=== PATIENT | female | born 1960 | race Caucasian/White ===

== ENCOUNTER 2017-07-18 10:18 | Outpatient (CLI) | payer OTHER ==
[2017-07-18 17:51] VITALS: BMI 30.9
--- NOTE | 2017-07-19 07:58 | EKG ---
Test Reason : Blood Pressure : / mmHG Vent. Rate : 074 BPM Atrial Rate : 074 BPM P-R Int : 154 ms QRS Dur : 080 ms QT Int : 382 ms P-R-T Axes : 051 078 062 degrees QTc Int : 424 ms Normal sinus rhythm Normal ECG No previous ECGs available Confirmed by ESTELA OLIVIA, DR. De Guzman ([id number]) on 07/19/2017 7:57:46 AM Referred By: MADYSON Confirmed By:DR. Gege PALMER MD
== END 2017-07-18 10:19 | disposition home or self-care (01) ==
LOC: LABBT 10:18
PROVIDERS: ATTEND Specialist
DX: Z01.818 Encounter for other preprocedural examination (principal); D05.12 Intraductal carcinoma in situ of left breast
CPT/HCPCS: 36415; 80048; 85025; 93005; 93010

== ENCOUNTER 2017-08-10 06:52 | Day surgery (SDC) | payer OTHER ==
[2017-07-18 13:07] LABS: #Basophils 0.1 thou/uL (0.0-0.2); #Eosinphils 0.3 thou/uL (0.0-0.7); #Lymphocytes 2.2 thou/uL (1.20-3.40); #Monocytes 0.6 thou/uL (0.11-0.59); #Neutrophils 7.6 thou/uL (1.40-6.50); %Basophils 0.8 % (0.0-1.0); %Eosinophils 2.7 % (0.0-10.0); %Lymphocytes 20.3 % (21.0-51.0); %Monocytes 5.6 % (0.0-10.0); Hematocrit 43.6 % (36.0-47.0); Mean Platelet Volume 7.4 fL (7.4-10.4); White Blood Cell (WBC) Count 10.8 thou/uL (4.8-10.8)
[2017-07-18 13:34] LABS: Anion Gap 13 mmol/L (10-20); BUN (Urea Nitrogen) 15 mg/dL (9.8-20.1); Calc. Creatinine Clearance 0 mL/min (70-130); Calcium 9.5 mg/dL (7.8-10.44); Carbon Dioxide 27 mmol/L (22-29); Chloride 102 mmol/L (98-107); Estimated GFR-MDRD 80
[2017-08-10] MEDS ORDERED: CEFAZOLIN/Water 2 GM/20 ML SYRINGE ONE (09:26)
[2017-08-10] MEDS ORDERED: Ketorolac Tromethamine 30 MG/ML VIAL ONE (09:26)
--- NOTE | 2017-08-10 10:23 | NM ---
LEFT BREAST LYMPHOSCINTIGRAPHY: INDICATION: Left breast DCIS. RADIOPHARMACEUTICAL: 0.44 mCi Technetium 99m filtered sulfur colloid subcu. TECHNIQUE: The left breast nipple-areolar complex was cleansed. Four separate aliquots for a total of 0.44 mCi Technetium 99m filtered SC were administered into the subcutaneous tissues surrounding the left nippl e. The left nipple region was then massaged. The patient underwent planar imaging until there was i dentification of the 1st draining anterior left axillary lymph node was identified. The patient was then transferred to the preoperative holding suite to undergo her left breast lumpectomy and left axi llary lymph node dissection. IMPRESSION: Successful left breast lymphoscintigraphy. POS: [facility]
--- NOTE | 2017-08-10 11:46 | MMO ---
LEFT BREAST NEEDLE LOCALIZATION: Date: 08/10/17 INDICATION: History of DCIS of the left breast. TECHNIQUE: Informed consent was obtained. The patient was positioned in the CCU projection within the left breas t for the mammographically guided needle localization. [employer] image was obtained. The breast was then sterilely prepped. Buffered 1% lidocaine was administered to the overlying subcutaneous tissues. Unde r mammographic guidance, a 7.5 cm [facility] needle was guided down through the level of the calcification s to level of the biopsy clip which is seen more distally and central within the left breast. The rell cifications are seen within the left breast 12 o'clock position. The biopsy clip was felt to be deepe r than the calcifications, likely related to displacement of the clip after the stereotactic breast b iopsy from the left breast hematoma. The needle tip was positioned 2.7 cm from the level of the calci fications. The tip of the needle was positioned adjacent to the biopsy clip itself. The wire was posi tioned within the left breast. The images were annotated for guidance to Dr. Pitts. The patient jose erated the procedure without difficulty. IMPRESSION: BIRADS 6: Known Biopsy Proven Malignancy Successful needle localizations of the calcifications within the left breast and associated left tristan st biopsy. POS: [facility]
[2017-08-10] MEDS ORDERED: Isosulfan Blue 50 MG/5 ML VIAL ONE (12:40)
[2017-08-10] MEDS ORDERED: Bupivacaine/Epinephrine 0.25% 30 ML VIAL ONE ×2 (12:40→14:03)
[2017-08-10] MEDS ORDERED: Fentanyl 100 MCG/2 ML VIAL ONE (12:45)
[2017-08-10] MEDS ORDERED: Midazolam HCl 2 mg/2 ml Vial ONE (12:45)
[2017-08-10] MEDS ORDERED: Ondansetron HCl/PF 4 MG/2 ML Vial ONE (16:15)
[2017-08-10] MEDS ORDERED: Dexamethasone 20 MG/5 ML VIAL ONE (16:15)
[2017-08-10] MEDS ORDERED: Propofol 200 MG/20 ML VIAL ONE (16:15)
--- NOTE | 2017-08-10 17:04 | OP ---
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 OPERATION PERFORMED: Left breast needle-localized lumpectomy, sentinel lymph node mapping with left axillary sentinel lymph node biopsy. SURGEON: Ilir Pitts M.D. ANESTHESIA: General endotracheal. INDICATIONS: The patient is a 57-year-old white female. She was recently found to have calcificatio ns on mammography, and stereotactic biopsy was performed with calcifications revealing a high grade d uctal carcinoma in situ. Needle localized lumpectomy was recommended by myself. She was taken to [facility] operating room at this time for this purpose. One preoperative needle localization was performed, and it was found that the residual calcifications were a few centimeters away from the clip. It was decided to endeavor to remove both the calcifications and the clip within the specimen. Lymphoscinti graphy did reveal axillary sentinel lymph nodes. DESCRIPTION OF OPERATION: Informed consent was obtained. The patient was taken to the operating aislinn m, where general endotracheal anesthesia was obtained with the patient in supine position. Left tristan st and axilla were prepped with ChloraPrep and draped in sterile fashion. The needle exited the supe rior aspect of the breast and was angled inferiorly and deep within the breast. A 3 mL of Lymphazurin was infiltrated in the subdermal periareolar tissue, and the breast was massaged for five minutes. Breast and axilla were then prepped with ChloraPrep and draped in sterile fashion. Local anesthetic was infiltrated, and a transverse incision was created in the inferior axilla. Dissection was gavino d through skin and subcutaneous tissue. The superficial axillary fascia was incised. The Neoprobe w as utilized to identify areas of maximum radio intensity. I was able to identify 2 significant enlar ged and blue-stained lymph nodes that were both highly radioactive. Each of these was grasped and re moved by dividing all investing tissue between clamps and 3-0 silk ties. The specimen was submitted to pathology for touch prep, which proved to be negative. The axilla was meticulously hemostatic. I t was irrigated and closed in layers with 3-0 and 4-0 Monocryl. Additional local anesthetic was infi ltrated during closure. Dermabond was placed externally. Attention was turned to the breast. The needle was found to be fairly deeply placed within the breas t. It was about 6 cm away from the needle tip at the skin edge. I decided to create a counterincisi on about 2-3 cm inferior to the needle insertion site. This was created in a transverse fashion. Dissection was carried through skin and subcutaneous tissue. Dissection was carried about a centimet er into the breast, and flap was raised superiorly to identify the needle within the breast tissue. At this point, the needle was removed, and the guidewire that was still within the tissue was replace d to the open incision. The tissue into which the guidewire entered was grasped with a couple of All is clamps and widely dissected so as to remove a lump of tissue along the guidewire extending beyond the tip of the guidewire. The specimen was removed intact. It was tagged for orientation and submit amrit for x-ray, which did reveal removal of calcifications and the clip. It was tagged for orientatio n and submitted to pathology. Meticulous hemostasis was obtained within the wound using electrocaute ry. It was irrigated and aspirated. The wound was closed in layers with 3-0 and 4-0 Monocryl suture . Dermabond was placed externally. There were no complications. The patient tolerated the procedur e well and was taken to recovery room in stable condition.
--- NOTE | 2017-08-14 12:00 | MMO ---
MAMMO SURGICAL SPECIMEN: INDICATION: Left breast lumpectomy. FINDINGS: The surgical specimen contains suspicious calcification, wire, and biopsy clip. Findings were called to Dr. Pitts in the operating room at 2:50 p.m. on 08/10/17. IMPRESSION: BI-RADS category 6 - known biopsy-proven malignancy. BIRADS 6: Known Biopsy Proven Malignancy POS: [facility]
== END 2017-08-10 17:10 | disposition home or self-care (01) ==
LOC: SDC 06:52
PROVIDERS: ATTEND Specialist
PROC: 0HBU0ZZ Excision of Left Breast, Open Approach (ICD-10-PCS; principal; 2017-08-10)
PROC: 07B63ZX Excision of Left Axillary Lymphatic, Percutaneous Approach, Diagnostic (ICD-10-PCS; principal; 2017-08-10)
DX: D05.12 Intraductal carcinoma in situ of left breast (principal); I10 Essential (primary) hypertension; E11.9 Type 2 diabetes mellitus without complications; Z88.1 Allergy status to other antibiotic agents; Z88.8 Allergy status to other drugs, medicaments and biological substances; Z79.84 Long term (current) use of oral hypoglycemic drugs; Z79.899 Other long term (current) drug therapy; Z90.710 Acquired absence of both cervix and uterus; Z98.890 Other specified postprocedural states; Z87.19 Personal history of other diseases of the digestive system
CPT/HCPCS: 19281; 36415; 76098; 78195; 80048; 85025; 88307; 88333; 88334; 88341; 88342; A9541; J0131; J1100; J1885; J2250; J2405; J2704; J3010; Q9968

== ENCOUNTER 2018-06-04 13:49 | Outpatient (CLI) | payer OTHER | END 2018-06-04 13:50 | disposition home or self-care (01) | LOC: BICMAMMO 13:49 | PROVIDERS: ATTEND Internal Medicine Hematology & Oncology | DX: Z08 Encounter for follow-up examination after completed treatment for malignant neoplasm (principal); R92.2 Inconclusive mammogram; Z85.3 Personal history of malignant neoplasm of breast; Z86.000 Personal history of in-situ neoplasm of breast; Z80.3 Family history of malignant neoplasm of breast; Z98.890 Other specified postprocedural states | CPT/HCPCS: 77066; G0279 ==

== ENCOUNTER 2019-07-04 14:02 | Outpatient (CLI) | payer OTHER ==
--- NOTE | 2019-07-04 14:50 | MMO ---
Bilateral MAMMO Bilat Diag [facility]. CLINICAL HISTORY: Patient is 59 years old and is seen for diagnostic exam. The patient has the following family history of breast cancer: maternal grandmother, malignant (generic). The patient has a history of lumpectomy procedure revealed intraductal carcinoma, high grade in the left breast in August, and Stereotactic core biopsy procedure revealed intraductal carcinoma, high grade in the left breast in May,. The patient has a history of left Stereotatic Biopsy in 2017 - malignant. VIEWS: The views performed were: bilateral craniocaudal with tomosynthesis; bilateral mediolateral oblique with tomosynthesis; and bilateral mediolateral with tomosynthesis. FILMS COMPARED: The present examination has been compared to prior imaging studies performed at [facility] on 10/01/2015, 05/03/2017, 05/08/2017 and 06/04/2018. This study has been interpreted with the assistance of computer-aided detection. MAMMOGRAM FINDINGS: There are scattered fibroglandular densities. There are stable post-operative changes in the left breast. There are no suspicious masses, suspicious calcifications, or new areas of architectural distortion. IMPRESSION: THERE IS NO MAMMOGRAPHIC EVIDENCE OF MALIGNANCY. A ROUTINE FOLLOW-UP MAMMOGRAM IN 1 YEAR IS RECOMMENDED. THE RESULTS OF THIS EXAM WERE SENT TO THE PATIENT. ACR BI-RADS Category 2 - Benign finding MAMMOGRAPHY NOTE: 1. A negative mammogram report should not delay a biopsy if a dominant of clinically suspicious mass is present. 2. Approximately 10% to 15% of breast cancers are not detected by mammography. 3. Adenosis and dense breasts may obscure an underlying neoplasm. Reported by: LIZETH RIVERA MD Electonically Signed: [id number]
== END 2019-07-04 14:03 | disposition home or self-care (01) ==
LOC: BICMAMMO 14:02
PROVIDERS: ATTEND Internal Medicine Hematology & Oncology
DX: C50.412 Malignant neoplasm of upper-outer quadrant of left female breast (principal)
CPT/HCPCS: 77066; G0279

== ENCOUNTER 2020-07-09 13:51 | Outpatient (CLI) | payer BC ==
--- NOTE | 2020-07-09 14:29 | MMO ---
Bilateral MAMMO Bilat Diag [facility]. CLINICAL HISTORY: Patient is 60 years old and is seen for diagnostic exam. The patient has the following family history of breast cancer: maternal grandmother, malignant (generic). The patient has a history of lumpectomy procedure revealed intraductal carcinoma, high grade in the left breast in August, and Stereotactic core biopsy procedure revealed intraductal carcinoma, high grade in the left breast in May,. The patient has a history of left Stereotatic Biopsy in 2017 - malignant. VIEWS: The views performed were: bilateral craniocaudal with tomosynthesis; bilateral mediolateral oblique with tomosynthesis; and bilateral mediolateral with tomosynthesis. FILMS COMPARED: The present examination has been compared to prior imaging studies performed at [facility] on 05/03/2017, 05/08/2017, 06/04/2018 and 07/04/2019. This study has been interpreted with the assistance of computer-aided detection. MAMMOGRAM FINDINGS: There are scattered fibroglandular densities. Finding 1: There are stable post operative changes seen in the left breast. Finding 2: There are stable benign appearing calcifications seen in both breasts. There are no suspicious masses, suspicious calcifications, or new areas of architectural distortion. IMPRESSION: THERE IS NO MAMMOGRAPHIC EVIDENCE OF MALIGNANCY. A ROUTINE FOLLOW-UP MAMMOGRAM IN 1 YEAR IS RECOMMENDED. THE RESULTS OF THIS EXAM WERE SENT TO THE PATIENT. ACR BI-RADS Category 2 - Benign finding MAMMOGRAPHY NOTE: 1. A negative mammogram report should not delay a biopsy if a dominant of clinically suspicious mass is present. 2. Approximately 10% to 15% of breast cancers are not detected by mammography. 3. Adenosis and dense breasts may obscure an underlying neoplasm. Reported by: JULIO DE LOS SANTOS MD Electonically Signed: [id number]
== END 2020-07-09 13:52 | disposition home or self-care (01) ==
LOC: BICMAMMO 13:51
PROVIDERS: ATTEND Internal Medicine Hematology & Oncology
DX: Z08 Encounter for follow-up examination after completed treatment for malignant neoplasm (principal); Z85.3 Personal history of malignant neoplasm of breast
CPT/HCPCS: 77066; G0279

== ENCOUNTER 2021-07-18 13:57 | Outpatient (CLI) | payer BC | END 2021-07-18 13:58 | disposition home or self-care (01) | LOC: BICMAMMO 13:57 | PROVIDERS: ATTEND Internal Medicine Hematology & Oncology | DX: Z08 Encounter for follow-up examination after completed treatment for malignant neoplasm (principal); Z85.3 Personal history of malignant neoplasm of breast | CPT/HCPCS: 77066; G0279 ==

== ENCOUNTER 2022-07-31 13:05 | Outpatient (CLI) | payer BC, OTHER | END 2022-07-31 13:06 | disposition home or self-care (01) | LOC: BICMAMMO 13:05 | PROVIDERS: ATTEND Internal Medicine Hematology & Oncology | DX: Z08 Encounter for follow-up examination after completed treatment for malignant neoplasm (principal); Z85.3 Personal history of malignant neoplasm of breast | CPT/HCPCS: 77066; G0279 ==

== ENCOUNTER 2022-08-30 12:38 | Outpatient (CLI) | payer BC | END 2022-08-30 12:39 | disposition home or self-care (01) | LOC: TBSIIMAG 12:38 | PROVIDERS: ATTEND Family Medicine | DX: M47.27 Other spondylosis with radiculopathy, lumbosacral region (principal); M48.08 Spinal stenosis, sacral and sacrococcygeal region; M51.16 Intervertebral disc disorders with radiculopathy, lumbar region; M47.26 Other spondylosis with radiculopathy, lumbar region; M48.061 Spinal stenosis, lumbar region without neurogenic claudication | CPT/HCPCS: 72148 ==

== ENCOUNTER 2022-09-14 13:37 | Outpatient (CLI) | payer BC | END 2022-09-14 13:38 | disposition home or self-care (01) | LOC: TBSIIMAG 13:37 | PROVIDERS: ATTEND Physician Assistant Surgical | DX: M47.26 Other spondylosis with radiculopathy, lumbar region (principal) | CPT/HCPCS: 72120 ==

== ENCOUNTER 2022-11-18 23:03 | Emergency (ER) | payer BC, OTHER ==
[2022-11-19 01:06] LABS: #Basophils 0.1 thou/uL (0.0-0.2); #Eosinphils 0.1 thou/uL (0.0-0.7); #Monocytes 0.8 thou/uL (0.11-0.59); #Neutrophils 4.6 thou/uL (1.40-6.50); %Basophils 0.7 % (0.0-1.0); %Eosinophils 1.3 % (0.0-10.0); %Lymphocytes 26.1 % (21.0-51.0); %Monocytes 10.2 % (0.0-10.0); %Neutrophils 61.6 % (42.0-75.0); Hemoglobin 12.1 g/dL (12.0-16.0); Mean Corpuscular Hemoglobin 30.4 pg (27.0-31.0); Mean Corpuscular Volume 86.8 fl (78.0-98.0); Platelet Count 260 10x3/uL (130-400); RBC Distribution Width 11.9 % (11.5-14.5); White Blood Cell (WBC) Count 7.5 10x3/uL (4.8-10.8)
[2022-11-19 01:26] LABS: ALT (SGPT) 19 U/L (8-55); AST (SGOT) 20 U/L (5-34); Albumin 3.8 g/dL (3.4-4.8); Alkaline Phosphatase 70 U/L (40-110); Anion Gap 14 mmol/L (10-20); BUN (Urea Nitrogen) 14 mg/dL (9.8-20.1); Bilirubin, Total 0.7 mg/dL (0.2-1.2); CK (CPK) 92 U/L (29-168); Calc. Creatinine Clearance 0 mL/min (70-130); Calcium 9.1 mg/dL (7.8-10.44); Carbon Dioxide 29 mmol/L (23-31); Chloride 95 mmol/L (98-107); Estimated GFR 57; Globulin 3.1 g/dL (2.4-3.5); Glucose 92 mg/dL (80-115); Potassium 2.8 mmol/L (3.5-5.1); Protein, Total 6.9 g/dL (5.8-8.1); Sodium 135 mmol/L (136-145)
[2022-11-19 02:01] LABS: Bilirubin Negative (Negative); Blood, Urine Negative (Negative); Clarity Clear (Clear); Glucose, Urine (Dipstick) Normal (Negative); Ketone, Urine Negative (Negative); Leukocyte Negative Leu/uL (Negative); Nitrite Negative (Negative); Protein, Urine (Dipstick) Negative (Neg-Trace); Specific Gravity, Urine 1.006 (1.002-1.036); Urobilinogen Normal mg/dL (Less than 2)
[2022-11-19] MEDS ORDERED: Potassium Chloride 20 MEQ TAB ONE (02:53)
== END 2022-11-19 02:57 | disposition home or self-care (01) ==
LOC: ERS 23:03
DX: E87.6 Hypokalemia (principal); E86.0 Dehydration; E11.9 Type 2 diabetes mellitus without complications; I10 Essential (primary) hypertension
CPT/HCPCS: 36415; 80053; 81003; 82550; 85025; 99283

== ENCOUNTER 2023-04-03 19:35 | Observation (INO) | payer BC ==
[~2023-04-03 19:35] MED LIST: Iopamidol-370 76% 500 ML MDV (1 ML CHARGE) ONE
[2023-04-03 20:24] LABS: #Basophils 0.1 thou/uL (0.0-0.2); #Eosinphils 0.4 thou/uL (0.0-0.7); #Monocytes 0.6 thou/uL (0.11-0.59); #Neutrophils 7.8 thou/uL (1.40-6.50); %Basophils 0.8 % (0.0-1.0); %Eosinophils 3.8 % (0.0-10.0); %Lymphocytes 21.7 % (21.0-51.0); %Monocytes 5.6 % (0.0-10.0); %Neutrophils 67.8 % (42.0-75.0); Hematocrit 38.4 % (36.0-47.0); Hemoglobin 13.1 g/dL (12.0-16.0); Mean Corpuscular HGB CONC 34.1 g/dL (32.0-36.0); Mean Corpuscular Hemoglobin 29.4 pg (27.0-31.0); Mean Corpuscular Volume 86.1 fl (78.0-98.0); Mean Platelet Volume 10.3 fL (7.4-10.4); Platelet Count 409 10x3/uL (130-400); RBC Distribution Width 13.4 % (11.5-14.5); Red Blood Cell (RBC) Count 4.46 mill/uL (4.20-5.40); White Blood Cell (WBC) Count 11.5 10x3/uL (4.8-10.8)
[2023-04-03 20:57] LABS: ALT (SGPT) 13 U/L (8-55); AST (SGOT) 13 U/L (5-34); Albumin 4.4 g/dL (3.4-4.8); Alkaline Phosphatase 103 U/L (40-110); Anion Gap 14 mmol/L (10-20); BUN (Urea Nitrogen) 17 mg/dL (9.8-20.1); Bilirubin, Total 0.8 mg/dL (0.2-1.2); Calc. Creatinine Clearance 0 mL/min (70-130); Calcium 9.7 mg/dL (7.8-10.44); Carbon Dioxide 24 mmol/L (23-31); Chloride 99 mmol/L (98-107); Estimated GFR 76; Globulin 3.9 g/dL (2.4-3.5); Glucose 69 mg/dL (80-115); Protein, Total 8.3 g/dL (5.8-8.1); Sodium 134 mmol/L (136-145)
[2023-04-03] MEDS ORDERED: Morphine 4 MG/ML VIAL ONE (22:11)
[2023-04-03 22:15] LABS: Lipase 56 U/L (8-78)
[2023-04-04 00:06] LABS: Bilirubin Negative (Negative); Blood, Urine Negative (Negative); CAUTI Indications for Culture Pelvic or flank pain; Clarity Clear (Clear); Glucose, Urine (Dipstick) Normal (Negative); Ketone, Urine Negative (Negative); Leukocyte 25 Leu/uL (Negative); Nitrite Negative (Negative); Protein, Urine (Dipstick) Negative (Neg-Trace); RBC/HPF 0-3 HPF (0-3); Specific Gravity, Urine 1.009 (1.002-1.036); Squamous Epithelial 0-3 HPF (0-3); Urobilinogen Normal mg/dL (Less than 2); WBC/HPF 0-3 HPF (0-3); pH, Urine 6.5 (5.0-9.0)
[2023-04-04 00:09] LABS: Bacteria/HPF Rare-Few HPF (None Seen)
[2023-04-04 00:11] LABS: Urine Culture Reflex No No
[2023-04-04] MEDS ORDERED: Senokot S 8.6-50 MG TAB PO PRN (00:55)
[2023-04-04] MEDS ORDERED: Acetaminophen 325 MG TAB PO PRN (00:55)
[2023-04-04] MEDS ORDERED: Dextrose 50% Abboject 50 ML SYRINGE SLOW IVP PRN (00:59)
[2023-04-04] MEDS ORDERED: HumaLOG 300 UNITS/3 ML VIAL SC PRN (00:59)
[2023-04-04] MEDS ORDERED: Dextrose 5% in Water 1,000 ML IV PRN (00:59)
[2023-04-04] MEDS ORDERED: Glucagon 1 MG/ML KIT IM PRN (00:59)
[2023-04-04 04:18] LABS: #Basophils 0.1 thou/uL (0.0-0.2); #Eosinphils 0.4 thou/uL (0.0-0.7); #Monocytes 0.8 thou/uL (0.11-0.59); #Neutrophils 7.7 thou/uL (1.40-6.50); %Basophils 0.7 % (0.0-1.0); %Eosinophils 3.3 % (0.0-10.0); %Lymphocytes 16.9 % (21.0-51.0); %Monocytes 7.1 % (0.0-10.0); %Neutrophils 71.7 % (42.0-75.0); Hematocrit 37.4 % (36.0-47.0); Hemoglobin 12.4 g/dL (12.0-16.0); Mean Corpuscular HGB CONC 33.2 g/dL (32.0-36.0); Mean Corpuscular Hemoglobin 28.5 pg (27.0-31.0); Mean Platelet Volume 9.8 fL (7.4-10.4); Platelet Count 329 10x3/uL (130-400); RBC Distribution Width 13.2 % (11.5-14.5); Red Blood Cell (RBC) Count 4.35 mill/uL (4.20-5.40); White Blood Cell (WBC) Count 10.8 10x3/uL (4.8-10.8)
[2023-04-04 04:44] LABS: ALT (SGPT) 11 U/L (8-55); AST (SGOT) 12 U/L (5-34); Albumin 4.1 g/dL (3.4-4.8); Alkaline Phosphatase 98 U/L (40-110); Anion Gap 16 mmol/L (10-20); BUN (Urea Nitrogen) 13 mg/dL (9.8-20.1); Bilirubin, Total 0.8 mg/dL (0.2-1.2); Calc. Creatinine Clearance 0 mL/min (70-130); Calcium 9.6 mg/dL (7.8-10.44); Carbon Dioxide 24 mmol/L (23-31); Chloride 102 mmol/L (98-107); Estimated GFR 94; Globulin 3.6 g/dL (2.4-3.5); Glucose 74 mg/dL (80-115); Potassium 2.8 mmol/L (3.5-5.1); Protein, Total 7.7 g/dL (5.8-8.1); Sodium 139 mmol/L (136-145)
[2023-04-04 04:46] LABS: Troponin I Less than 0.010 ng/mL (< 0.028)
[2023-04-04 07:44] LABS: Troponin I Less than 0.010 ng/mL (< 0.028)
[2023-04-04 08:30] VITALS: BMI 28.3
[2023-04-04] MEDS ORDERED: Electrolyte Replacement Protocol 1 EACH FS SCH (10:00)
[2023-04-04 10:45] LABS: Magnesium 1.4 mg/dL (1.6-2.6)
[2023-04-04] MEDS: Amlodipine 10 MG TAB PO SCH ×2 (11:10→14:17)
[2023-04-04] MEDS: Carvedilol 3.125 MG TAB PO SCH ×3 (11:10→20:05)
[2023-04-04] MEDS: Clopidogrel Bisulfate 75 MG TAB PO SCH ×2 (11:11→14:17)
[2023-04-04] MEDS: Hydrochlorothiazide 25 MG TAB PO SCH ×2 (11:11→16:41)
[2023-04-04] MEDS ORDERED: Potassium Chloride 20 MEQ/100 ML PREMIX BAG ONE ×2 (11:25→11:26)
[2023-04-04] MEDS: Potassium Chloride 20 MEQ in Premix Bag 1 BAG IVPB SCH ×2 (11:45→14:49)
[2023-04-04] MEDS ORDERED: Magnesium Sulfate In Water 4 GM in Premix Bag 1 BAG IVPB SCH (12:00)
[2023-04-04] MEDS ORDERED: Potassium Chloride 20 MEQ TAB PO SCH ×2 (13:30→17:30)
[2023-04-04] MEDS ORDERED: Amlodipine 5 MG TAB ONE (14:11)
[2023-04-04] MEDS ORDERED: Clopidogrel Bisulfate 75 MG TAB ONE (14:12)
[2023-04-04] MEDS ORDERED: Potassium Chloride 20 MEQ TAB ONE (14:14)
[2023-04-04] MEDS ORDERED: Atorvastatin Calcium 40 MG TAB PO SCH (21:00)
[2023-04-05 05:40] LABS: #Basophils 0.1 thou/uL (0.0-0.2); #Eosinphils 0.3 thou/uL (0.0-0.7); #Monocytes 0.6 thou/uL (0.11-0.59); #Neutrophils 6.2 thou/uL (1.40-6.50); %Basophils 0.6 % (0.0-1.0); %Eosinophils 3.7 % (0.0-10.0); %Lymphocytes 18.8 % (21.0-51.0); %Monocytes 6.9 % (0.0-10.0); %Neutrophils 69.6 % (42.0-75.0); Hematocrit 36.3 % (36.0-47.0); Mean Corpuscular HGB CONC 33.1 g/dL (32.0-36.0); Mean Corpuscular Hemoglobin 28.5 pg (27.0-31.0); Mean Corpuscular Volume 86.2 fl (78.0-98.0); Mean Platelet Volume 10.3 fL (7.4-10.4); Platelet Count 338 10x3/uL (130-400); RBC Distribution Width 13.3 % (11.5-14.5); Red Blood Cell (RBC) Count 4.21 mill/uL (4.20-5.40)
[2023-04-05 06:04] LABS: Anion Gap 16 mmol/L (10-20); BUN (Urea Nitrogen) 15 mg/dL (9.8-20.1); Calc. Creatinine Clearance 84 mL/min (70-130); Carbon Dioxide 23 mmol/L (23-31); Chloride 102 mmol/L (98-107); Estimated GFR 80; Glucose 192 mg/dL (80-115); Potassium 3.5 mmol/L (3.5-5.1); Sodium 137 mmol/L (136-145)
[2023-04-05] MEDS ORDERED: Potassium Chloride 20 MEQ TAB PO SCH (08:00)
[2023-04-05] MEDS: Amlodipine 10 MG TAB PO SCH (08:34)
[2023-04-05] MEDS: Clopidogrel Bisulfate 75 MG TAB PO SCH (08:35)
[2023-04-05] MEDS: Carvedilol 3.125 MG TAB PO SCH (08:35)
[2023-04-05] MEDS: Hydrochlorothiazide 25 MG TAB PO SCH (08:35)
[2023-04-05] MEDS ORDERED: Semaglutide [Ozempic] 1 MG/0.75 ML Pen.Injctr SC SCH (09:00)
[2023-04-05] MEDS ORDERED: Non-Formulary Item 1 EACH (Semaglutide [Ozempic] 1 MG/0.75 ML Pen.Injctr) SQ SCH (09:00)
[2023-04-05] MEDS ORDERED: Cholecalciferol 1,000 UNITS (25 MCG) TAB PO SCH ×2 (09:00)
[2023-04-05 12:21] VITALS: BP 134/69; TEMP 98.2
== END 2023-04-05 17:05 | disposition home or self-care (01) ==
LOC: ERS 19:35 → ERHOLD 04-04 00:20 → 2SW 04-04 16:01
PROVIDERS: ADMIT Internal Medicine Nephrology; ATTEND Family Medicine
DX: R07.89 Other chest pain (principal); I10 Essential (primary) hypertension; E11.9 Type 2 diabetes mellitus without complications; D25.9 Leiomyoma of uterus, unspecified; D64.9 Anemia, unspecified; E78.5 Hyperlipidemia, unspecified; E87.6 Hypokalemia; E87.1 Hypo-osmolality and hyponatremia; I25.10 Atherosclerotic heart disease of native coronary artery without angina pectoris; Z90.710 Acquired absence of both cervix and uterus; Z88.6 Allergy status to analgesic agent; Z88.1 Allergy status to other antibiotic agents; Z88.8 Allergy status to other drugs, medicaments and biological substances; Z79.84 Long term (current) use of oral hypoglycemic drugs; Z85.3 Personal history of malignant neoplasm of breast; Z79.02 Long term (current) use of antithrombotics/antiplatelets; Z79.899 Other long term (current) drug therapy
CPT/HCPCS: 36415; 36416; 71045; 71275; 80048; 80053; 81001; 83690; 83735; 84484; 85025; 93005; 96374; 96375; G0378; J2270; J3475; J3480; Q9967

== ENCOUNTER 2023-07-06 11:15 | Outpatient (CLI) | payer BC | END 2023-07-06 11:16 | disposition home or self-care (01) | LOC: MRI 11:15 | PROVIDERS: ATTEND Neurological Surgery | DX: M51.26 Other intervertebral disc displacement, lumbar region (principal); M47.816 Spondylosis without myelopathy or radiculopathy, lumbar region; M43.16 Spondylolisthesis, lumbar region; M48.07 Spinal stenosis, lumbosacral region; M51.27 Other intervertebral disc displacement, lumbosacral region | CPT/HCPCS: 72100; 72148 ==

== ENCOUNTER 2023-08-02 13:33 | Outpatient (CLI) | payer BC | END 2023-08-02 13:34 | disposition home or self-care (01) | LOC: BICMAMMO 13:33 | PROVIDERS: ATTEND Internal Medicine Hematology & Oncology | DX: Z08 Encounter for follow-up examination after completed treatment for malignant neoplasm (principal); Z85.3 Personal history of malignant neoplasm of breast | CPT/HCPCS: 77066; G0279 ==

== ENCOUNTER 2024-08-06 13:50 | Outpatient (CLI) | payer OTHER | END 2024-08-06 13:51 | disposition home or self-care (01) | LOC: BICMAMMO 13:50 | PROVIDERS: ATTEND Internal Medicine Hematology & Oncology | DX: Z12.31 Encounter for screening mammogram for malignant neoplasm of breast (principal); Z80.3 Family history of malignant neoplasm of breast; Z98.890 Other specified postprocedural states; Z91.89 Other specified personal risk factors, not elsewhere classified | CPT/HCPCS: 77063; 77067 ==

== ENCOUNTER 2025-06-26 04:13 | Inpatient (IN) | payer OTHER, SELFPAY ==
[2025-06-26] MEDS ORDERED: Pantoprazole 40 MG VIAL ONE (05:35)
[2025-06-26 05:40] LABS: #Basophils 0.07 10x3/uL (0.0-0.2); #Eosinophils 0.33 10x3/uL (0.0-0.7); #Monocytes 0.74 10x3/uL (0.11-0.59); #Neutrophils 11.65 10x3/uL (1.40-6.50); %Basophils 0.5 % (0.0-1.0); %Eosinophils 2.2 % (0.0-10.0); %Lymphocytes 13.1 % (21.0-51.0); %Monocytes 5.0 % (0.0-10.0); %Neutrophils 78.9 % (42.0-75.0); Hematocrit 35.1 % (36.0-47.0); Hemoglobin 11.7 g/dL (12.0-16.0); Mean Corpuscular Hemoglobin 29.3 pg (27.0-31.0); Mean Corpuscular Volume 87.8 fL (78.0-98.0); Platelet Count 347 10x3/uL (130-400); Red Blood Cell (RBC) Count 4.00 mill/uL (4.20-5.40); White Blood Cell (WBC) Count 14.76 10x3/uL (4.8-10.8)
[2025-06-26 06:04] LABS: ALT (SGPT) 18 U/L (Less than 34); AST (SGOT) 20 U/L (11-34); Albumin 3.7 g/dL (3.1-4.5); Alkaline Phosphatase 108 U/L (40-110); Anion Gap 13 mmol/L (10-20); BUN (Urea Nitrogen) 14 mg/dL (9.8-20.1); Bilirubin, Total 0.8 mg/dL (0.3-1.2); Calc. Creatinine Clearance 0 mL/min (70-130); Calcium 9.2 mg/dL (7.8-10.44); Carbon Dioxide 26 mmol/L (23-31); Chloride 104 mmol/L (98-107); Globulin 3.3 g/dL (2.4-3.5); Glucose 192 mg/dL (80-115); Lipase 34 U/L (8-78); Potassium 3.6 mmol/L (3.5-5.1); Sodium 139 mmol/L (136-145)
[2025-06-26] MEDS ORDERED: HYDROcodone/Acetaminophen 10/325 mg Tablet PO PRN (09:59)
[2025-06-26] MEDS ORDERED: Ondansetron PF 4 MG/2 ML Vial IVP PRN (09:59)
[2025-06-26] MEDS ORDERED: Dextrose 50% Abboject 50 ML SYRINGE SLOW IVP PRN ×2 (10:06→17:49)
[2025-06-26] MEDS ORDERED: Glucagon 1 MG/ML KIT IM PRN ×2 (10:06→17:49)
[2025-06-26 10:32] LABS: Magnesium 1.7 mg/dL (1.6-2.6)
[2025-06-26] MEDS ORDERED: PROPOFOL 20 ML ONE (14:29)
[2025-06-26] MEDS ORDERED: fentaNYL PF 100 MCG/2 ML SYRINGE ONE (14:29)
[2025-06-26] MEDS ORDERED: Lidocaine 1% PF 5 ML VIAL ONE (14:29)
[2025-06-26] MEDS ORDERED: Rocuronium Bromide 10 MG/ML (10ML VIAL) ONE ×2 (15:33)
[2025-06-26] MEDS ORDERED: Bupivacaine 0.25% HCL 30 ML VIAL ONE (15:44)
[2025-06-26] MEDS ORDERED: CEFAZOLIN 1 GM VIAL ONE (16:40)
[2025-06-26] MEDS ORDERED: Ondansetron PF 4 MG/2 ML Vial ONE (16:45)
[2025-06-26] MEDS ORDERED: SUGAMMADEX SODIUM 200 MG/2 ML VIAL ONE (17:25)
[2025-06-26] MEDS ORDERED: PACU-Morphine 4MG/ML VIAL SLOW IVP PRN (17:28)
[2025-06-26] MEDS ORDERED: HYDROmorphone 0.5 MG/0.5 ML SYR SLOW IVP PRN (17:28)
[2025-06-26] MEDS: Ketorolac Tromethamine 30 MG (1 mL) VIAL IVP SCH (19:35)
[2025-06-26] MEDS: D5 1/2 NS w/20 mEq KCL 1,000 ML IV SCH (19:36)
[2025-06-26 20:16] VITALS: BMI 30.5
[2025-06-26] MEDS: Senokot 8.6 MG TAB PO SCH (21:27)
[2025-06-26] MEDS: Famotidine/PF 20 mg/2ml Vial SLOW IVP SCH (21:27)
[2025-06-26] MEDS: Famotidine 20 MG TAB PO SCH (21:27)
[2025-06-26] MEDS: Acetaminophen 325 MG TAB PO PRN (22:44)
[2025-06-26] MEDS: FLU (Fluarix Triv) 25-26 (6MOS UP)/PF 45 MCG/0.5 ML Syringe IM ONE (22:51)
[2025-06-27 06:19] LABS: #Basophils 0.03 10x3/uL (0.0-0.2); #Eosinophils Less than 0.03 10x3/uL (0.0-0.7); #Monocytes 0.47 10x3/uL (0.11-0.59); #Neutrophils 13.64 10x3/uL (1.40-6.50); %Basophils 0.2 % (0.0-1.0); %Eosinophils 0.0 % (0.0-10.0); %Lymphocytes 4.8 % (21.0-51.0); %Monocytes 3.2 % (0.0-10.0); %Neutrophils 91.4 % (42.0-75.0); Hematocrit 36.4 % (36.0-47.0); Hemoglobin 11.6 g/dL (12.0-16.0); Mean Corpuscular Hemoglobin 28.7 pg (27.0-31.0); Mean Corpuscular Volume 90.1 fL (78.0-98.0); Platelet Count 340 10x3/uL (130-400); Red Blood Cell (RBC) Count 4.04 mill/uL (4.20-5.40); White Blood Cell (WBC) Count 14.91 10x3/uL (4.8-10.8)
[2025-06-27 06:43] LABS: ALT (SGPT) 25 U/L (Less than 34); AST (SGOT) 40 U/L (11-34); Albumin 3.7 g/dL (3.1-4.5); Alkaline Phosphatase 87 U/L (40-110); Anion Gap 12 mmol/L (10-20); BUN (Urea Nitrogen) 13 mg/dL (9.8-20.1); Bilirubin, Total 0.8 mg/dL (0.3-1.2); Calc. Creatinine Clearance 88 mL/min (70-130); Calcium 9.3 mg/dL (7.8-10.44); Carbon Dioxide 22 mmol/L (23-31); Chloride 103 mmol/L (98-107); Globulin 3.4 g/dL (2.4-3.5); Glucose 274 mg/dL (80-115); Potassium 3.9 mmol/L (3.5-5.1); Sodium 133 mmol/L (136-145)
[2025-06-27] MEDS: Carvedilol 6.25 MG TAB PO SCH (14:56)
[2025-06-27] MEDS: NIFEdipine XL 30 MG ER.TAB PO SCH (14:56)
[2025-06-27 16:03] VITALS: BP 167/75; TEMP 98
== END 2025-06-27 16:20 | disposition home or self-care (01) | DRG 419 ==
LOC: ERS 04:13 → T4-B 10:05
PROVIDERS: ADMIT Surgery; ATTEND Surgery
PROC: 0FT44ZZ Resection of Gallbladder, Percutaneous Endoscopic Approach (ICD-10-PCS; principal; 2025-06-26)
PROC: 8E0W4CZ Robotic Assisted Procedure of Trunk Region, Percutaneous Endoscopic Approach (ICD-10-PCS; 2025-06-26)
PROC: 3E03329 Introduction of Other Anti-infective into Peripheral Vein, Percutaneous Approach (ICD-10-PCS; 2025-06-26)
PROC: 3E033XZ Introduction of Vasopressor into Peripheral Vein, Percutaneous Approach (ICD-10-PCS; 2025-06-26)
PROC: 3E02340 Introduction of Influenza Vaccine into Muscle, Percutaneous Approach (ICD-10-PCS; 2025-06-26)
DX: K81.9 Cholecystitis, unspecified (principal); I10 Essential (primary) hypertension; E11.9 Type 2 diabetes mellitus without complications; Z98.890 Other specified postprocedural states; Z79.899 Other long term (current) drug therapy; Z88.8 Allergy status to other drugs, medicaments and biological substances; Z95.1 Presence of aortocoronary bypass graft; I25.10 Atherosclerotic heart disease of native coronary artery without angina pectoris; Z85.3 Personal history of malignant neoplasm of breast; Z92.3 Personal history of irradiation
CPT/HCPCS: 36415; 36416; 76705; 80053; 83690; 83735; 84100; 85025; 86850; 86900; 86901; 88304; 96374; C1713; C1889; J0169; J0665; J0690; J1100; J1815; J1885; J2405; J2470; J2543; J2704; J3010; J3480; J7120; S2900

== ENCOUNTER 2025-08-13 12:16 | Outpatient (CLI) | payer OTHER | END 2025-08-13 12:17 | disposition home or self-care (01) | LOC: BICMAMMO 12:16 | PROVIDERS: ATTEND Internal Medicine Hematology & Oncology | DX: Z12.31 Encounter for screening mammogram for malignant neoplasm of breast (principal); R59.0 Localized enlarged lymph nodes; Z80.3 Family history of malignant neoplasm of breast; Z86.000 Personal history of in-situ neoplasm of breast; Z98.890 Other specified postprocedural states | CPT/HCPCS: 77063; 77067 ==